=== PATIENT | female | born 1950 | race Caucasian/White ===

== ENCOUNTER 2018-10-07 16:51 | Inpatient (IN) | payer BC ==
[~2018-10-07] VITALS: Ht 152.4 cm; Wt 46.7 kg
--- NOTE | 2018-10-07 16:55 | NUR ---
BIB RA [facility] FROM HOME,TOOK UNKNOWN AMOUNT OF ATIVAN AND CETIRAZINE AT APPROXIMATELY 1600 (1 HR WIND TURBINE SERVICE TECHNICIAN), PLACED ON THE MONITOR AND NC AT 2L/MIN. DR BAÑUELOS AT FOR EVAL.
--- NOTE | 2018-10-07 17:17 | NUR ---
POISON CONTROL CALLED,SPOKE WITH KARSON. RECOMMENDATIONS: BASELINE EKG AND REPEAT IN 4 HRS TO MONITOR FOR EKG CHANGES,BASIC LABS AND DRUG SCREEN,TYLENOL,ASPIRIN AND ETOH, NO FLUMAZENIL SHOULD BE USED. DR BAÑUELOS INFORMED AND POISON CONTROL WILL CHECK BACK IN 4 HRS.
[2018-10-07 17:59] LABS: BASOPHILS # (AUTO) 0.1 /CMM (0.0-0.2); BASOPHILS % (AUTO) 0.8 % (0.0-2.0); EOSINOPHILS % (AUTO) 1.6 % (0.0-6.0); HEMATOCRIT 42 % (33-45); HEMOGLOBIN 13.7 g/dL (11.5-14.8); LYMPHOCYTES # (AUTO) 2.3 /CMM (0.8-4.8); LYMPHOCYTES % (AUTO) 31.4 % (20.0-44.0); MEAN CORPUSCULAR HGB CONC 33 g/dl (31.0-36.0); MEAN CORPUSCULAR VOLUME 92 fL (82-100); MONOCYTES # (AUTO) 0.6 /CMM (0.1-1.30); MONOCYTES % (AUTO) 7.5 % (2.0-12.0); NEUTROPHILS # (AUTO) 4.4 /CMM (1.8-8.9); NEUTROPHILS % (AUTO) 58.7 % (43.0-81.0); PLATELET COUNT (AUTO) 210 /CMM (150-450); WHITE BLOOD COUNT (AUTO) 7.4 K/uL (4.3-11.0)
[2018-10-07 18:13] LABS: CALCIUM, SERUM 9.2 mg/dL (8.5-10.1); CARBON DIOXIDE 27 mmol/L (21-32); CHLORIDE 108 mmol/L (98-107); CREATININE 0.6 mg/dL (0.6-1.3); GLUCOSE 89 mg/dL (74-106); SODIUM SERUM 140 mmol/L (136-145); UREA NITROGEN, BLOOD 14 mg/dL (7-18)
[2018-10-07 18:23] LABS: APPEARANCE,URINE Clear (CLEAR); BILIRUBIN,URINE Negative (NEGATIVE); BLOOD, URINE Negative Ery/uL (NEGATIVE); COLOR,URINE Yellow (YELLOW); KETONES,URINE Negative (NEGATIVE); LEUKOCYTE ESTERASE ,URINE Negative (NEGATIVE); NITRITE, URINE Negative (NEGATIVE); PH,URINE 6.5 (5.0-8.0); PROTEIN,URINE Negative (NEGATIVE); UGLUCOSE Negative (NEGATIVE); UROBILINOGEN,URINE 0.2 EU/dL (0.2)
[2018-10-07 18:27] LABS: ALANINE AMINOTRANSFERASE 18 U/L (12-78); ALBUMIN 2.9 g/dL (3.4-5.0); ALCOHOL, BLOOD < 3 mg/dL (0-0); ALKALINE PHOSPHATASE 66 U/L (46-116); ASPARTATE AMINOTRANSFERASE 18 U/L (15-37); BILIRUBIN,TOTAL 0.2 mg/dL (0.2-1.0); TOTAL PROTEIN, SERUM 6.3 g/dL (6.4-8.2)
[2018-10-07 18:29] LABS: ACETAMINOPHEN 0 ug/ml (10-30); SALICYLATE 2.6 mg/dL (2.8-20.0)
--- NOTE | 2018-10-07 19:15 | NUR ---
REPORT GIVEN TO OANH CRAWFORD FOR G[facility].
--- NOTE | 2018-10-07 19:32 | NUR ---
HUMBERTO (SISTER) CONTACT INFORMATION:
[2018-10-07] MEDS ORDERED: IV NS 0.9% 1,000 ML IV PRN (20:32)
[2018-10-07] MEDS ORDERED: ACETAMINOPHEN 650 MG/SUPP.RECT RC PRN (21:00)
[2018-10-07] MEDS ORDERED: ONDANSETRON HCL/PF 4 MG/2 ML VIAL IVP PRN (21:00)
--- NOTE | 2018-10-07 22:37 | NUR ---
Faxed clinicals to Tabby employment evaluator/case manager at [facility] (Fax #: [phone])
--- NOTE | 2018-10-07 22:51 | NUR ---
REPORT GIVEN TO MARCELINA HUGO.
--- NOTE | 2018-10-07 23:15 | NUR ---
TELE ELECTRICIAN MAINTENANCE INITIAL NOTES ADMIT PT FROM ER VIA [facility] ACCOMPANIED BY ER NURSE AND TECH. DX OF INTENTIONAL OVERDOSE WITH ATIVAN AND ZYRTEC. PT RECEIVED WITH EYES CLOSED BUT AROUSE TO TOUCH. ABLE TO ANSWERED SOME QUESTION BUT MOST OF THE TIME SHE IGNORED TO ANSWER. GOT INFORMATION FROM HER ER RECORDS. SKIN WARM AND DRY TO TOUCH.BREATHING EVEN AND NON-LABORED NOT IN ANY ACUTE DISTRESS NOTED. SITTER AT THE BEDSIDE FOR SAFETY. TELE SINUS RHYTHM HEART RATE 72 PER MONITOR. KEPT HER WARM AND COMFORTABLE AT ALL TIMES. PLACE CALL LIGHT AT REACH.
[2018-10-08 00:41] VITALS: BP 122/64
[2018-10-08 04:00] VITALS: BP 119/78
[2018-10-08] MEDS ORDERED: HALOPERIDOL LACTATE INJ 5 MG/ML VIAL IM PRN (07:00)
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
--- NOTE | 2018-10-08 07:10 | NUR ---
DRY END OPERATOR NOTES PATIENT RECEIVED RESTING INSIDE ROOM. AWAKE, ALERT AND ORIENTED TO SELF, ASKING WHERE SHE IS. PATIENT RE-ORIENTED TO UNIT. BREATHING EVEN AND UNLABORED. NO ACUTE DISTRESS. DENIES ANY PAIN OR DISCOMFORT. SITTER AT BEDSIDE. PATIENT NOTED TO BE COMBATIVE, REFUSING ASSISTANCE FROM NURSING STAFF. KEEPS ON TRYING TO GET OUT OF BED TELLING THAT SHE IS GOING HOME. WILL CONTINUE TO MONITOR. BED LOCKED AND IN LOW POSITION. BILATERAL UPPER SIDE RAILS UP AND LOCKED. CALL LIGHT WITHIN EASY REACH
--- NOTE | 2018-10-08 07:26 | NUR ---
AGRICULTURAL EXTENSION SPECIALIST NOTES PATIENT COMBATIVE. SCREAMING, "I AM GOD! I KILL MYSELF, I KILL MYSELF!". PATIENT ASKING WHERE SHE IS AND WHAT IS SHE DOING HERE. PATIENT RE-ORIENTED TO UNIT AND PLAN OF CARE. PATIENT CONTINUES TO BE COMBATIVE, SWING ARMS AND LEGS, ATTEMPTING TO KICK STAFF. SAFETY MEASURES IN PLACE. SITTER AT BEDSIDE. WILL CONTINUE TO MONITOR
[2018-10-08 07:49] LABS: BASOPHILS # (AUTO) 0.1 /CMM (0.0-0.2); BASOPHILS % (AUTO) 0.7 % (0.0-2.0); EOSINOPHILS % (AUTO) 1.1 % (0.0-6.0); HEMATOCRIT 37 % (33-45); HEMOGLOBIN 12.4 g/dL (11.5-14.8); LYMPHOCYTES # (AUTO) 2.2 /CMM (0.8-4.8); LYMPHOCYTES % (AUTO) 25.4 % (20.0-44.0); MEAN CORPUSCULAR HGB CONC 34 g/dl (31.0-36.0); MEAN CORPUSCULAR VOLUME 92 fL (82-100); MONOCYTES # (AUTO) 0.4 /CMM (0.1-1.30); MONOCYTES % (AUTO) 4.9 % (2.0-12.0); NEUTROPHILS # (AUTO) 5.8 /CMM (1.8-8.9); NEUTROPHILS % (AUTO) 67.9 % (43.0-81.0); PLATELET COUNT (AUTO) 208 /CMM (150-450); RED BLOOD CELL COUNT(AUTO) 4.03 MIL/uL (4.0-5.2); WHITE BLOOD COUNT (AUTO) 8.5 K/uL (4.3-11.0)
[2018-10-08 08:16] LABS: CALCIUM, SERUM 8.4 mg/dL (8.5-10.1); CREATININE 0.6 mg/dL (0.6-1.3); MAGNESIUM 2.1 mg/dL (1.8-2.4); PHOSPHORUS 3.2 mg/dL (2.5-4.9); POTASSIUM 3.5 mmol/L (3.5-5.1); THYROID STIMULATING HORMONE 1.25 uIU/mL (0.358-3.74)
[2018-10-08] MEDS ORDERED: PANTOPRAZOLE 40 MG VIAL IV SCH (09:00)
[2018-10-08] MEDS ORDERED: LORA1TAB PO (09:20)
[2018-10-08] MEDS ORDERED: SERT100T12 PO (09:20)
[2018-10-08] MEDS ORDERED: LOSA100T31 PO (09:20)
[2018-10-08] MEDS ORDERED: OLAN20TA3 PO (09:20)
--- NOTE | 2018-10-08 10:57 | NUR ---
MS RN NOTES PATIENT SEEN AND EXAMINED BY YOMAIRA BACON NP. WITH OK TO HAVE BILATERAL SOFT WRIST RESTRAINTS PATIENT KEEPS ON PULLING IV AND WITH MULTIPLE ATTEMPTS OF HITTING/KICKING STAFF. ALSO WITH ORDER FOR PSYCH CONSULT FOR EVAL. ORDERS NOTED AND CARRIED OUT. WILL CONTINUE TO MONITOR
--- NOTE | 2018-10-08 12:37 | NUR ---
MS RN NOTES PATIENT WITH ORDER FROM YOMAIRA BACON NP TO START SOFT DIET IF PATIENT PASSES NURSING SWALLOW EVAL. EVAL INITIATED AN PATIENT PASSED, YOMAIRA BACON NP PRESENT AT UNIT AND MADE AWARE. STARTED SOFT DIET. PATIENT AND SISTER, HUMBERTO, AT BEDSIDE MADE AWARE AND VERBALIZED UNDERSTANDING. WILL CONTINUE TO MONITOR
--- NOTE | 2018-10-08 14:18 | NUR ---
Social service consult requested by Dr. Juarez for intentional overdose. Pt. is a 68 year old female who was admitted to [facility] for overdose and encephalopathy. DREAD met with pt. and her sister Sunni bedside. Pt. is alert and oriented x 2. Pt. hair is disheveled. Pt. has a sitter bedside. Pt. states she overdosed because she was very angry. When SW inquired who pt. is angry with, pt. stated, " many people." Pt. was mumbling words which were difficult to comprehend. SW asked pt. if she is suicidal. Pt. stated, " no, I want to get close to God and talk to him." Pt. is suicidal and paranoid. Pt. states when she feels hopeless and stressed she usually tries to overdose. According to pt's sister Sunni, pt. lives alone. Sunni has been checking in on the pt. due to the landlord calling and stating the pt. was throwing items from the 3rd floor balcony onto the street. Pt. lives alone with her dog at [address] [place]. Pt's emergency contact is her sister Sunni and her [id number] Yunier . Per Sunni, the whole family suffers from Depression due to a brother who committed suicide a few years ago. Sunni states that pt. has Paranoid Schizophrenia and was taking her medications but stopped taking them 6 months ago. 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 Pt. to be seen by psychiatrist.
--- NOTE | 2018-10-08 18:45 | NUR ---
MS RN NOTES PATIENT WITH OK TO DISCHARGE FROM YOMAIRA BACON NP. ORDER NOTED AND CARRIED OUT. PATIENT MADE AWARE. DISCHARGE INSTRUCTIONS AND EDUCATION GIVEN AND PROVIDED BUT PATIENT REFUSED TO SIGN. CHARGE NURSE AWARE AND WITNESSED. ALL BELONGINGS COMPLETE. NO MISSING BELONGING PER INVENTORY SHEET. PATIENT TO BE TRANSFERRED TO [facility] UNIT, TO BE ADMITTED UNDER RAY TURNER GRAVELY DISABLE ADULT. NO CHANGES IN LOC NOTED. PATIENT ALERT AND ORIENTED, VERBALLY RESPONSIVE AND RESPONDS TO VERBAL AND TACTILE STIMULI. NO ACUTE DISTRESS. DENIES ANY PAIN OR DISCOMFORT. NO NEW SKIN BREAKDOWN NOTED. REPORT TO BE GIVEN TO GPS NURSE.
--- NOTE | 2018-10-08 19:49 | NUR ---
MS RN NOTES IV REMOVED WITH MINIMAL BLEEDING NOTED, PRESSURE DRESSING PLACED ON SITE. PATIENT TRANSFERRED TO GPS IN STABLE CONDITION. TRANSFERRED VIA BED. NO CHANGES IN LOC . BREATHING EVEN AND UNLABORED. NO ACUTE DISTRESS. DENIES ANY PAIN OR DISCOMFORT. NO NEW SKIN BREAKDOWN NOTED. ALL BELONGINGS BROUGHT WITH PATIENT DURING TRANSFER. REPORT GIVEN TO GPS FLOOR NURSE. MD AWARE OF DISCHARGE
== END 2018-10-08 18:44 | DRG 917 ==
LOC: ER 16:52 → TELE 21:55 → MED 10-08 10:32
PROVIDERS: ATTEND Nurse Practitioner Acute Care
DX: T42.4X2A Poisoning by benzodiazepines, intentional self-harm, initial encounter (principal); G92 Toxic encephalopathy; T45.0X2A Poisoning by antiallergic and antiemetic drugs, intentional self-harm, initial encounter; Y92.009 Unspecified place in unspecified non-institutional (private) residence as the place of occurrence of the external cause; F12.90 Cannabis use, unspecified, uncomplicated; I10 Essential (primary) hypertension; E88.09 Other disorders of plasma-protein metabolism, not elsewhere classified; F99 Mental disorder, not otherwise specified
CPT/HCPCS: 36415; 71045-TC; 80048-TC; 80061-TC; 80076-TC; 80305; 81000-TC; 83735-TC; 84100-TC; 84443-TC; 85025-TC; 87081-TC; G0378; G0480; J1630; J7030

== ENCOUNTER 2018-10-08 20:34 | Inpatient (IN) | payer BC, OTHER ==
[~2018-10-08] VITALS: Ht 149.9 cm; Wt 46.7 kg
--- NOTE | 2018-10-08 19:45 | NUR ---
GPS/TAILER IN ADMISSION NOTES: RECEIVED 68YR. OLD FEMALE ON A 5150 HOLD FOR GD AND DTS. PT. ON HOLD FOR SUICIDAL ATTEMPT BY TAKING A BOTTLE OF ZYRTEC AND SEVERAL ATIVAN. PT. A/O X2-3. PT. INFORMED OF UNIT POLICY, PROTOCOLS AND PROCEDURES. CALL ROMERO WITHIN REACH AND BED ALARM ON. PT. BELONGINGS LOGGED AND LOCKED ON PT. DESIGNATED CABINET. MEDICAL DR. AND PSYCH INFORMED OF PT. ADMISSION TO UNIT. FAMILY ALSO NOTIFIED. WILL CONTINUE TO MONITOR Q 15 MIN FOR SAFETY AND BEHAVIOR.
[~2018-10-08 20:34] MED LIST: LORA1TAB PO; LOSA100T31 PO; OLAN20TA3 PO; SERT100T12 PO
[2018-10-08] MEDS ORDERED: MAGNESIUM HYDROXIDE 30 ML UDC PO PRN (21:30)
[2018-10-08] MEDS ORDERED: ACETAMINOPHEN 325 MG TABLET PO PRN (21:30)
[2018-10-08] MEDS ORDERED: MAG HYDROX/AL HYDROX/SIMETH 30 ML UDC PO PRN (21:30)
[2018-10-09 07:08] LABS: BASOPHILS % (AUTO) 0.3 % (0.0-2.0); EOSINOPHILS % (AUTO) 0.7 % (0.0-6.0); HEMATOCRIT 40 % (33-45); HEMOGLOBIN 13.2 g/dL (11.5-14.8); LYMPHOCYTES # (AUTO) 2.6 /CMM (0.8-4.8); LYMPHOCYTES % (AUTO) 29.4 % (20.0-44.0); MEAN CORPUSCULAR HGB CONC 33 g/dl (31.0-36.0); MEAN CORPUSCULAR VOLUME 90 fL (82-100); MONOCYTES # (AUTO) 0.4 /CMM (0.1-1.30); MONOCYTES % (AUTO) 4.9 % (2.0-12.0); NEUTROPHILS # (AUTO) 5.7 /CMM (1.8-8.9); NEUTROPHILS % (AUTO) 64.7 % (43.0-81.0); PLATELET COUNT (AUTO) 222 /CMM (150-450); WHITE BLOOD COUNT (AUTO) 8.8 K/uL (4.3-11.0)
[2018-10-09 07:32] LABS: ALBUMIN 2.9 g/dL (3.4-5.0); BILIRUBIN,TOTAL 0.4 mg/dL (0.2-1.0); CREATININE 0.7 mg/dL (0.6-1.3); POTASSIUM 3.5 mmol/L (3.5-5.1); TOTAL PROTEIN, SERUM 6.3 g/dL (6.4-8.2)
[2018-10-09 07:35] LABS: CHOLESTEROL 184 mg/dL (<200); HDL CHOLESTEROL 85 mg/dL (40-60); LDL 90 mg/dL (0-99); TRIGLYCERIDES 120 mg/dL (30-150)
[2018-10-09 08:00] VITALS: BP 140/74
--- NOTE | 2018-10-09 10:15 | NUR ---
UR NOTE: SW faxed face sheet and Hold to to Serg at [phone] fax# [phone].
--- NOTE | 2018-10-09 11:31 | NUR ---
SW contacted pts sister Callie [phone] and brother in law Yunier [phone] for discharge planning and collateral information. Sister stated that pt is able to return home after she is stable. Sister is concerned with pts current behaviors and stated that there is a family history of suicidality, per sister pts mother and brother committed suicide. Brother in law requested to speak to Psychiatrist Dr. Payne to discuss treatment. SW also informed them that pts hospitalization may be short due to pts strict HMO insurance. Family understood.
--- NOTE | 2018-10-09 12:09 | NUR ---
INITIAL DISCHARGE PLAN: Per Callie [phone] pt will return home [place] [id number] [place] [address] [address] [place] [address]. SW will help form a safe and proper discharge in collaboration with pts sister, pt, HMO insurance, and .
--- NOTE | 2018-10-09 12:11 | NUR ---
UR NOTE: DREAD received a call from Violeta [phone], anesthesiologist and critical care at [facility] stating that she would be contacting [employer] to request authorization # then would contact DREAD with authorization status.
[2018-10-09 16:00] VITALS: BP 133/71
[2018-10-09] MEDS: LOSARTAN POTASSIUM 50 MG TABLET PO SCH (16:00)
--- NOTE | 2018-10-09 19:20 | NUR ---
GPS RN NOTES: PATIENT SIGN CONSENT FOR NEW PSYCH MEDICATION ORDERED. FAXED TP PHARMACY. PATIENT'S SISTER ASKED FOR THE MEDICATION TO BE GIVEN EARLIER THAN THE ORDERED TIME 2100 SO SHE CAN ASSIST WITH THE PATIENT TAKING THE SAID MEDICATION. SPOKE WITH PHARMACY STAFF AND AGREED TO MAKE THE MEDICATION AVAILABLE.PATIENT TOOK THE MEDICATION. WILL CONTINUE TO MONITOR.
[2018-10-09] MEDS: OLANZAPINE 5 MG/TAB.RAPDIS PO SCH (19:36)
[2018-10-09 20:00] VITALS: BP 144/88
[2018-10-09] MEDS ORDERED: OLANZAPINE 5 MG/TAB.RAPDIS PO SCH (21:00)
[2018-10-10] MEDS: OLANZAPINE 5 MG/TAB.RAPDIS PO SCH ×2 (07:30→19:30)
[2018-10-10 08:00] VITALS: BP 125/75
--- NOTE | 2018-10-10 08:45 | NUR ---
GPS/RN PT REFUSED ALL AM MEDS OFFERED X3. WILL REPEAT ATTEMPTS TO MEDICATE THE PT
[2018-10-10] MEDS: LOSARTAN POTASSIUM 50 MG TABLET PO SCH (09:00)
[2018-10-10] MEDS: SERTRALINE HCL 50 MG TABLET PO SCH (09:00)
--- NOTE | 2018-10-10 12:27 | NUR ---
GPS/RN PT REFUSED MEDS AGAIN DESPITE HER SISTER'S HELP. DR GARCIA IS AWARE OF PT RESISTANCE TO CARE.
[2018-10-10 16:00] VITALS: BP 128/72
[2018-10-11] MEDS: OLANZAPINE 5 MG/TAB.RAPDIS PO SCH ×2 (07:30→19:30)
[2018-10-11 08:16] VITALS: BP 123/80
[2018-10-11] MEDS: LOSARTAN POTASSIUM 50 MG TABLET PO SCH (08:35)
[2018-10-11] MEDS: SERTRALINE HCL 50 MG TABLET PO SCH (08:37)
[2018-10-11 16:24] VITALS: BP 125/57
--- NOTE | 2018-10-11 20:31 | NUR ---
Patient refused her scheduled medication stated "I'm a doctor to myself ,I don't take medication.".
[2018-10-11 21:00] VITALS: BP 134/68
[2018-10-12] MEDS: OLANZAPINE 5 MG/TAB.RAPDIS PO SCH ×2 (07:30→18:44)
[2018-10-12 08:00] VITALS: BP 120/73
[2018-10-12] MEDS: LOSARTAN POTASSIUM 50 MG TABLET PO SCH (08:45)
[2018-10-12] MEDS: SERTRALINE HCL 50 MG TABLET PO SCH (08:45)
--- NOTE | 2018-10-12 13:55 | NUR ---
UR NOTE: DREAD faxed clinical review to to Serg at [phone] fax# [phone] for review.
[2018-10-12 16:00] VITALS: BP 144/102
[2018-10-12] MEDS: DIVALPROEX SODIUM 250 MG TABLET.DR PO SCH (16:07)
--- NOTE | 2018-10-12 16:10 | NUR ---
UR NOTE: DREAD faxed clinical review to DEYVI Bonilla [phone] [facility]. FAX# [phone] and PATTI for review.
[2018-10-12 20:00] VITALS: BP 115/76
[2018-10-13] MEDS: OLANZAPINE 5 MG/TAB.RAPDIS PO SCH ×2 (07:30→20:18)
[2018-10-13 08:00] VITALS: BP 129/73
--- NOTE | 2018-10-13 08:39 | NUR ---
UR NOTE: DREAD received a call from Violeta [phone], critical care educator at [facility] stating that she has confirmed with [employer] that pts hospitalization has been authorized by [employer]. Violeta provided DREAD with authorization #[id number] and stated Tessa Headley [phone], critical care educator, has been assigned to pts case.
[2018-10-13] MEDS: LOSARTAN POTASSIUM 50 MG TABLET PO SCH (09:00)
[2018-10-13] MEDS: SERTRALINE HCL 50 MG TABLET PO SCH (09:00)
[2018-10-13] MEDS: DIVALPROEX SODIUM 250 MG TABLET.DR PO SCH ×2 (09:00→13:00)
--- NOTE | 2018-10-13 09:18 | NUR ---
GPS/RN-NOTES PATIENT REFUSED ALL AM MEDICATIONS STATED" I DON'T TAKE MEDICATIONS,I DON'T USE DRUGS" OFFERED X3.
--- NOTE | 2018-10-13 13:56 | NUR ---
UR NOTE: DREAD faxed clinical review to [facility] [phone] EXT 1 WITH [facility]. FAX# [phone] for review
--- NOTE | 2018-10-13 13:59 | NUR ---
SW contacted pts sister Callie [phone] and brother in law Yunier [phone] to inform them a [employer] petition had been filed yesterday 10/12/18. Brother in law stated that him and pts sister were at [facility] on this present day attending the hearing scheduled for 1430.
[2018-10-13] MEDS ORDERED: OLANZAPINE 10 MG VIAL IM PRN (15:30)
[2018-10-13 16:00] VITALS: BP 126/54
[2018-10-13 20:00] VITALS: BP 150/82
[2018-10-14 08:00] VITALS: BP 127/77
--- NOTE | 2018-10-14 08:08 | NUR ---
UR NOTE: DREAD received a voicemail from [facility] [phone] acute care assistant with [employer] stating pt needed to be transferred out for psych as this authorization is a [facility] carve out. DREAD informed iso coordinator as DREAD has previously received a call from Violeta therapy manager at [facility] confirming she received authorization from [employer].
--- NOTE | 2018-10-14 08:40 | NUR ---
UR NOTE: DREAD faxed clinical review to [facility] [phone] skin care consultant with [facility]. FAX# [phone] and also faxed clinical review to [facility] fax# [phone] for review.
[2018-10-14] MEDS: OLANZAPINE 5 MG/TAB.RAPDIS PO SCH ×2 (09:30→20:14)
[2018-10-14] MEDS: LOSARTAN POTASSIUM 50 MG TABLET PO SCH (09:53)
--- NOTE | 2018-10-14 14:38 | NUR ---
UR NOTE: DREAD received a voicemail from Malathi, shoe caser at [facility] [phone] [phone] requesting clinical review for pt and legal status. DREAD faxed clinical review to [phone].
--- NOTE | 2018-10-14 14:41 | NUR ---
UR NOTE: DREAD contacted Pilar, director day care center at [facility] [phone] [phone] to discuss discharge plan for pt.
--- NOTE | 2018-10-14 15:01 | NUR ---
@12:30 patient refused to eat her food had the SENIOR CHEMIST remove the food out of the room and shut the door. I went in after I saw this and asked the patient why she did not want to eat and she replied "Because i am on Strike!!! No Food!!" Will continue to monitor.
--- NOTE | 2018-10-14 15:55 | NUR ---
UR NOTE: DREAD received a call from Malathi, window caser at [facility] [phone] [phone] requesting legal status on pt and recertification paperwork. DREAD faxed recertification.
[2018-10-14 16:00] VITALS: BP 121/75
[2018-10-14 20:37] VITALS: BP 131/73
[2018-10-14] MEDS: TEMAZEPAM 7.5 MG CAPSULE PO PRN (21:16)
[2018-10-15 08:00] VITALS: BP 130/74
[2018-10-15] MEDS: OLANZAPINE 5 MG/TAB.RAPDIS PO SCH ×2 (08:14→20:21)
[2018-10-15] MEDS: LOSARTAN POTASSIUM 50 MG TABLET PO SCH (08:16)
--- NOTE | 2018-10-15 09:26 | NUR ---
UR NOTE: DREAD faxed clinical review to Malathi case repairer at [facility] [phone] [phone] for review.
--- NOTE | 2018-10-15 09:34 | NUR ---
UR NOTE: DREAD contacted Malathi, case aide at [facility] [phone] [phone] to inform her pt has been refusing to eat and also refusing PO meds. DREAD informed Malathi pt will need to stay over the weekend. Malathi will review clinicals.
--- NOTE | 2018-10-15 12:23 | NUR ---
DREAD contacted pts brother in law Yunier [phone] to request a discharge plan for pt as SW explained that pts HMO insurance is strict and will discharge as soon as pt no longer meets criteria for psychiatric hospitalization. Brother in law was unhappy and stated that he wants pt hospitalized for 30-40 days until her system gets use to the medication. SW explained that keeping pt here for 30-40days is not possible as pts hospitalization is being covered by [employer] and if they feel pt no longer meets criteria they will no longer cover and pt will have to discharge. in law requested to speak with pts psychiatrist Dr. Payne regarding length of stay. SW will inform Dr. Núñez. SW also informed brother in law that he should expect pt to discharge early next week as [employer] insurance may only approve hospitalization over the weekend due to pt being compliant with psychiatric medication. Pt will be discharged home per brother in law.
[2018-10-15 16:00] VITALS: BP 100/59
[2018-10-15 20:00] VITALS: BP 97/72
[2018-10-16 08:00] VITALS: BP 106/67
--- NOTE | 2018-10-16 08:28 | NUR ---
UR NOTE: DREAD faxed clinical review to Malathi case assistant at [facility] [phone] [phone] for review.
[2018-10-16] MEDS: LOSARTAN POTASSIUM 50 MG TABLET PO SCH (08:53)
[2018-10-16] MEDS: OLANZAPINE 5 MG/TAB.RAPDIS PO SCH ×2 (08:53→20:19)
[2018-10-16 16:04] VITALS: BP 104/71
--- NOTE | 2018-10-16 19:00 | NUR ---
GPS RN NOTE: SPOKE TO MICHAEL (SISTER) OF THE PATIENT, PER SISTER, SHE REQUESTED THE PSYCHIATRIST DR. QUIÑONES TO TALK TO THE PSYCHOLOGIST OF THE PATIENT. AND PER REPORT OF THE PREVIOUS NURSE, DR. QUIÑONES REFUSED TO CALL THE PSYCHOLOGIST. WITH THE ASSISTANCE OF THE PREVIOUS NURSE, RELAYED THE INFORMATION TO THE SISTER, SISTER GETS UPSET AND WANTS TO CHANGE HER PSYCHIATRIST AND WANTS TO TALK TO THE HEAD OF THE DEPARTMENT. SISTER SPOKED TO THE CHARGE NURSE AND AGREED TO TALK TO THE PSYCHIATRIST AND THE SALESPERSON MEN'S AND BOYS' CLOTHING. WILL ENDORSE TO THE NEXT SHIFT.
[2018-10-16 20:31] VITALS: BP 149/87
[2018-10-17] MEDS: LORAZEPAM 0.5 MG TABLET PO PRN ×2 (00:16→21:56)
[2018-10-17 08:00] VITALS: BP 121/74
[2018-10-17] MEDS: OLANZAPINE 5 MG/TAB.RAPDIS PO SCH ×2 (08:54→18:48)
[2018-10-17] MEDS: LOSARTAN POTASSIUM 50 MG TABLET PO SCH (08:55)
[2018-10-17 15:52] VITALS: BP 113/59
[2018-10-17 20:00] VITALS: BP 121/74
[2018-10-18 08:00] VITALS: BP 127/73
[2018-10-18] MEDS: OLANZAPINE 5 MG/TAB.RAPDIS PO SCH ×2 (08:15→18:51)
[2018-10-18] MEDS: LOSARTAN POTASSIUM 50 MG TABLET PO SCH (08:16)
[2018-10-18 16:00] VITALS: BP 128/70
[2018-10-18 20:09] VITALS: BP 127/75
[2018-10-18] MEDS: LORAZEPAM 0.5 MG TABLET PO PRN (20:47)
[2018-10-19] MEDS: OLANZAPINE 5 MG/TAB.RAPDIS PO SCH (07:52)
[2018-10-19 08:00] VITALS: BP 141/77
[2018-10-19] MEDS: LOSARTAN POTASSIUM 50 MG TABLET PO SCH (08:16)
--- NOTE | 2018-10-19 09:42 | NUR ---
UR NOTE: DREAD faxed clinical review to Malathi patient case manager at [facility] [phone] [phone] for review.
--- NOTE | 2018-10-19 09:50 | NUR ---
DREAD received a phone call from pts brother in law Yunier [phone] requesting to switch psychiatrist due to Dr. Payne "being disengaged" from family and not returning calls. Family requested Dr. Aguilar or Dr. Vasquez, DREAD informed him that due to pts [facility] Dr. Aguilar/Dr. Vasquez are not authorized MD's and thus unable to switch. Brother in law understood, DREAD informed him that she would contact Dr. Payne for call back.
--- NOTE | 2018-10-19 10:00 | NUR ---
SW contacted Dr. Payne requesting call to family.
--- NOTE | 2018-10-19 10:12 | NUR ---
DREAD contacted pts brother in law Yunier [phone] after receiving a call from Psychiatrist Dr. Payne, informing him that pt may be discharging on this present day and to be ready for cone picker. DREAD also informed him that Psychiatrist will be giving him a call after he assesses pt on this present day.
--- NOTE | 2018-10-19 15:30 | NUR ---
RN-CO: DR QUIÑONES MADE AWARE TO CALL PATIENT'S BROTHER. PATIENT IS PLANNED TO BE DISCHARGE HOME TOMORROW.
[2018-10-19 16:00] VITALS: BP 118/62
[2018-10-19 19:55] VITALS: BP 141/88
[2018-10-19] MEDS: TEMAZEPAM 7.5 MG CAPSULE PO PRN (21:38)
[2018-10-19] MEDS ORDERED: OLANZAPINE 5 MG/TAB.RAPDIS PO SCH (22:00)
[2018-10-20 08:00] VITALS: BP 116/85
[2018-10-20 09:13] VITALS: BP 116/85
[2018-10-20] MEDS: LOSARTAN POTASSIUM 50 MG TABLET PO SCH (09:13)
--- NOTE | 2018-10-20 10:16 | NUR ---
UR NOTE: DREAD contacted Pilar, zoo caretaker at [facility] [phone] [phone] and requested a follow up appointment with psychiatrist. Pilar stated that she has been unable to schedule an after care appointment but provided DREAD with a list of psychiatrist within pts network to provide as referrals.
--- NOTE | 2018-10-20 12:00 | NUR ---
GREEN CHAIN MARKER NOTE ;PATIENT ALERT ,VERBALLY RESPONSIVE ,DENIES SI/HI/AVH .MED COMPLIANT ,VS STABLE .PATIENT SEEN BY PSYCHIATRIST AND SATURATOR WITH DISCHARGE ORDER,ALL BELONGINGS RETURNED TO PATIENT .PATIENT DISCHARGED WITH SISTER .
--- NOTE | 2018-10-20 12:20 | NUR ---
DISCHARGE NOTE: Pt was discharged between at 12:00pm via private vehicle home to [address], [facility] [address]. Pts sister Antonette [phone] picked pt up and transported home. For smoking cessation, patient was referred to the [employer] and [employer] [id number]. Pt will also participate in a telephone meeting with [employer] [phone] on Sunday October 21, 2018 at 8:00am. Pt was provided with referral to [facility]'s 1.Dr. Yamileth Sarmiento Address: [address] [address] 2.Dr. Yon Payne Address: [address] [place] [address] 3.Dr. Fritz Escoto Address: [address] [facility] [address] [address] 4.Dr. Rae Koo Address: [address] [place] [address] 5.Dr. Andre Pedro Address: [address] [place] [address] Phone: and was instructed to call and schedule an appointment. also provided pt with auto care center manager with [facility] [phone] contact information. Pt will also schedule a follow up appointment with Lead Ruby On Rails Developer Dr. Buchanan. The multidisciplinary exitcare form was done, printed, signed, and given to the patient. Addendum: 10/20/18 at 1441 by EMILY CANADA Pts mood was euphoric with congruent affect. Pt denied visual/auditory hallucinations and denied suicidal/homicidal ideations
--- NOTE | 2018-10-22 12:52 | NUR ---
UR NOTE: DREAD faxed discharge summary to Malathi clinical case manager at [facility] [phone] [phone] .
== END 2018-10-20 12:00 | disposition home or self-care (01) | DRG 885 ==
LOC: GPS 20:34
PROVIDERS: ADMIT Psychiatry & Neurology Psychiatry; ATTEND Psychiatry & Neurology Psychiatry
DX: F31.2 Bipolar disorder, current episode manic severe with psychotic features (principal); N17.0 Acute kidney failure with tubular necrosis; G92 Toxic encephalopathy; E44.0 Moderate protein-calorie malnutrition; F29 Unspecified psychosis not due to a substance or known physiological condition; T50.902D Poisoning by unspecified drugs, medicaments and biological substances, intentional self-harm, subsequent encounter; F12.10 Cannabis abuse, uncomplicated; Z79.899 Other long term (current) drug therapy; Z91.14 Patient's other noncompliance with medication regimen; R73.9 Hyperglycemia, unspecified; I10 Essential (primary) hypertension
CPT/HCPCS: 36415; 80053-TC; 80061-TC; 85025-TC; 87081-TC; J3490

== ENCOUNTER 2020-08-11 23:36 | Emergency (ER) | payer OTHER ==
[~2020-08-11] VITALS: Ht 152.4 cm; Wt 43.5 kg
[~2020-08-11 23:36] MED LIST changes: -LORA1TAB PO; -OLAN20TA3 PO; -SERT100T12 PO
--- NOTE | 2020-08-12 00:05 | NUR ---
PT CAME TO THE ER C/O VAGINAL BLEEDING SINCE 8PM TODAY. +WATERY +BRIGHT RED. PT AAOX4, VSS, RESPIRAIONS EVEN AND UNLABORED W/ NAD NOTED. PT CONNECTED TO THE MONITOR AND POX
--- NOTE | 2020-08-12 00:10 | NUR ---
URINE COLLECTED AND SENT TO LAB
[2020-08-12 00:32] LABS: BILIRUBIN,URINE NEGATIVE (NEGATIVE); BLOOD, URINE LARGE Ery/uL (NEGATIVE); COLOR,URINE RED (YELLOW); LEUKOCYTE ESTERASE ,URINE MODERATE (NEGATIVE); NITRITE, URINE POSITIVE (NEGATIVE); PROTEIN,URINE >=300 mg/dl (NEGATIVE); UGLUCOSE 100 MG/DL mg/dL (NEGATIVE)
[2020-08-12 00:39] LABS: RBC,URINE TOO NUMEROUS TO COUN /HPF (0-2)
[2020-08-12 00:40] LABS: BACTERIA,URINE Few /HPF (None Seen); SQUAMOUS EPITHELIAL CELL,UR Few /HPF (None Seen)
[2020-08-12 00:54] LABS: BASOPHILS % (AUTO) 0.4 % (0.0-2.0); EOSINOPHILS % (AUTO) 0.4 % (0.0-6.0); HEMATOCRIT 41 % (33-45); HEMOGLOBIN 13.4 g/dL (11.5-14.8); LYMPHOCYTES # (AUTO) 2.7 /CMM (0.8-4.8); MEAN CORPUSCULAR HGB CONC 33 g/dl (31.0-36.0); MEAN CORPUSCULAR VOLUME 90 fL (82-100); MONOCYTES # (AUTO) 0.7 /CMM (0.1-1.30); MONOCYTES % (AUTO) 6.2 % (2.0-12.0); NEUTROPHILS # (AUTO) 7.7 /CMM (1.8-8.9); PLATELET COUNT (AUTO) 243 /CMM (150-450); RED BLOOD CELL COUNT(AUTO) 4.53 MIL/uL (4.0-5.2); WHITE BLOOD COUNT (AUTO) 11.1 K/uL (4.3-11.0)
[2020-08-12] MEDS ORDERED: CEFTRIAXONE 1GM BAG (ER ONLY) 50 ML IV ONE (01:26)
[2020-08-12] MEDS: CEFTRIAXONE 1 G in IV D5W 50 ML IV ONE (01:34)
[2020-08-12 03:14] VITALS: BP 136/91
--- NOTE | 2020-08-12 03:14 | NUR ---
Patient discharged to home in stable condition. Written and verbal after care instructions given. Patient verbalizes understanding of instruction.IV removed. Catheter intact and site benign. Pressure and 4x4 applied to site. No bleeding noted.
[2020-08-12] MEDS ORDERED: RISP1TAB97 PO (15:05)
[2020-08-12] MEDS ORDERED: SERT50TA12 PO (15:05)
[2020-08-12] MEDS ORDERED: LORA-259 PO (15:05)
[2020-08-12] MEDS ORDERED: UMEC1BLS INH (15:05)
[2020-08-12] MEDS ORDERED: SIMV10TA98 PO (15:05)
== END 2020-08-12 03:15 | disposition home or self-care (01) ==
LOC: ER 23:38
DX: N39.0 Urinary tract infection, site not specified (principal); N93.8 Other specified abnormal uterine and vaginal bleeding; R93.89 Abnormal findings on diagnostic imaging of other specified body structures; R10.30 Lower abdominal pain, unspecified; I10 Essential (primary) hypertension; Z79.899 Other long term (current) drug therapy
CPT/HCPCS: 36415; 76856; 81001; 85025; 85730; 86850; 96365; 99284; J0696; 81000-TC; 87086-TC

== ENCOUNTER 2020-08-12 14:46 | Emergency (ER) | payer OTHER ==
--- NOTE | 2020-08-12 14:50 | NUR ---
PT IS REQUESTING A MEDICAL DELIVERY DRIVER. WHEN TOLD THAT SHE NEEDS TO BE SEEN BY ED PROVIDER FIRST. PT JUST DECIDED TO LEAVE AND WILL SEE PMD FOR REFFERAL TO COMPUTER CUSTOMER SUPPORT SPECIALIST
[2020-08-12] MEDS ORDERED: SIMV10TA98 PO (15:05)
[2020-08-12] MEDS ORDERED: LORA-259 PO (15:05)
[2020-08-12] MEDS ORDERED: UMEC1BLS INH (15:05)
[2020-08-12] MEDS ORDERED: SERT50TA12 PO (15:05)
[2020-08-12] MEDS ORDERED: RISP1TAB97 PO (15:05)
== END 2020-08-16 | disposition left against medical advice (07) ==
LOC: ER 14:47
DX: Z53.21 Procedure and treatment not carried out due to patient leaving prior to being seen by health care provider (principal)

== ENCOUNTER 2021-02-03 10:24 | Emergency (ER) | payer OTHER ==
[~2021-02-03] VITALS: Ht 160 cm; Wt 42.6 kg
[~2021-02-03 10:24] MED LIST changes: +LORA-259 PO; +RISP1TAB97 PO; +SERT-438 PO; +SIMV10TA98 PO; +UMEC1BLS INH
[2021-02-03 11:23] LABS: BILIRUBIN,URINE Negative (NEGATIVE); COLOR,URINE YELLOW (YELLOW); LEUKOCYTE ESTERASE ,URINE Small (NEGATIVE); NITRITE, URINE Negative (NEGATIVE); PH,URINE 7.5 (5.0-8.0); PROTEIN,URINE 100 mg/dl (NEGATIVE); UGLUCOSE Negative (NEGATIVE); UROBILINOGEN,URINE 0.2 EU/dL (0.2)
[2021-02-03 11:26] LABS: BACTERIA,URINE 1+ /HPF (None Seen); RBC,URINE 21-50 /HPF (0-2); SQUAMOUS EPITHELIAL CELL,UR Few /HPF (None Seen)
--- NOTE | 2021-02-03 11:30 | NUR ---
THE PATIENT BIBS FOR C/O PELVIC AREA PAIN W/ NOTED BLOOD IN URINE X 2 DAYS. PATIENT RATES PAIN 6/10. DENIES NAUSEA/VOMITING. ABDOMEN SOFT AND NON-DISTENDED. WARM BLANKET PROVIDED FOR COMFORT. WILL CONTINUE TO MONITOR THE PATIENT.
[2021-02-03] MEDS ORDERED: CEFU500T66 PO (13:08)
[2021-02-03 13:12] VITALS: BP 122/73
--- NOTE | 2021-02-03 13:12 | NUR ---
Patient discharged to home in stable condition. Written and verbal after care instructions given. Patient verbalizes understanding of instruction.
== END 2021-02-03 13:13 | disposition home or self-care (01) ==
LOC: ER 10:28
DX: N39.0 Urinary tract infection, site not specified (principal); R31.9 Hematuria, unspecified; I10 Essential (primary) hypertension; F41.9 Anxiety disorder, unspecified; F17.200 Nicotine dependence, unspecified, uncomplicated; Z79.899 Other long term (current) drug therapy
CPT/HCPCS: 81001; 87086-TC

== ENCOUNTER 2021-06-01 09:41 | Emergency (ER) | payer OTHER ==
[~2021-06-01] VITALS: Ht 167.6 cm; Wt 38.1 kg
[2021-06-01 09:41] VITALS: BP 141/54
[~2021-06-01 09:41] MED LIST changes: +CEFU500T66 PO; -RISP1TAB97 PO; -SERT-438 PO; +SERT50TA12 PO
--- NOTE | 2021-06-01 10:11 | NUR ---
SEEN BY DR FOSTER WITH ORDERS, LAB AT THE BEDSIDE FOR BLOOD DRAW. URINE SENT
--- NOTE | 2021-06-01 10:24 | NUR ---
WAITING FOR LAB RESULTS
[2021-06-01 10:32] LABS: BASOPHILS # (AUTO) 0.1 K/uL (0.0-0.2); BASOPHILS % (AUTO) 0.8 % (0.0-2.0); EOSINOPHILS % (AUTO) 0.3 % (0.0-6.0); HEMATOCRIT 40 % (33-45); HEMOGLOBIN 13.5 g/dL (11.5-14.8); LYMPHOCYTES # (AUTO) 1.6 K/uL (0.8-4.8); LYMPHOCYTES % (AUTO) 17.8 % (20.0-44.0); MEAN CORPUSCULAR HGB CONC 34 g/dl (31.0-36.0); MEAN CORPUSCULAR VOLUME 93 fL (82-100); MONOCYTES # (AUTO) 0.4 K/uL (0.1-1.30); MONOCYTES % (AUTO) 4.1 % (2.0-12.0); NEUTROPHILS # (AUTO) 6.9 K/uL (1.8-8.9); PLATELET COUNT (AUTO) 224 K/uL (150-450)
[2021-06-01 10:38] LABS: BILIRUBIN,URINE NEGATIVE (NEGATIVE); COLOR,URINE YELLOW (YELLOW); LEUKOCYTE ESTERASE ,URINE NEGATIVE (NEGATIVE); NITRITE, URINE NEGATIVE (NEGATIVE); PROTEIN,URINE NEGATIVE (NEGATIVE); UGLUCOSE NEGATIVE (NEGATIVE); UROBILINOGEN,URINE 0.2 EU/dL (0.2)
[2021-06-01 10:45] LABS: CALCIUM, SERUM 9.1 mg/dL (8.5-10.1); CREATININE 0.7 mg/dL (0.6-1.3); POTASSIUM 3.3 mmol/L (3.5-5.1)
[2021-06-01 10:50] LABS: BACTERIA,URINE Rare /HPF (None Seen); SQUAMOUS EPITHELIAL CELL,UR Rare /HPF (None Seen); WBC,URINE 0-2 /HPF (0-3)
[2021-06-01 10:53] LABS: ALBUMIN 3.5 g/dL (3.4-5.0); BILIRUBIN,DIRECT 0.1 mg/dL (0.0-0.2); BILIRUBIN,TOTAL 0.3 mg/dL (0.2-1.0); TOTAL PROTEIN, SERUM 6.9 g/dL (6.4-8.2)
[2021-06-01] MEDS ORDERED: PHEN-704 PO (11:45)
--- NOTE | 2021-06-01 11:52 | NUR ---
Patient discharged to home in stable condition. Written and verbal after care instructions given. Patient verbalizes understanding of instruction.
== END 2021-06-01 11:54 | disposition home or self-care (01) ==
LOC: ER 09:43
DX: R31.9 Hematuria, unspecified (principal); I10 Essential (primary) hypertension; F41.9 Anxiety disorder, unspecified; F17.200 Nicotine dependence, unspecified, uncomplicated; Z79.899 Other long term (current) drug therapy
CPT/HCPCS: 36415; 80048-TC; 80076-TC; 81001; 83690-TC; 85025-TC

== ENCOUNTER 2023-07-14 10:42 | Emergency (ER) | payer OTHER ==
[~2023-07-14] VITALS: Ht 152.4 cm; Wt 47.6 kg
[~2023-07-14 10:42] MED LIST changes: -CEFU500T66 PO; +PHEN-704 PO
[2023-07-14] MEDS ORDERED: dexaMETHasone SOD PHOSPHATE 4 MG/ML VIAL IM ONE (11:30)
[2023-07-14] MEDS ORDERED: dexaMETHasone SOD PHOSPHATE 10 MG/ML VIAL ONE (11:38)
[2023-07-14 11:45] VITALS: BP 147/95; TEMP 98.4; O2SAT 100
== END 2023-07-14 11:45 | disposition home or self-care (01) ==
LOC: ER 10:43
DX: L30.9 Dermatitis, unspecified (principal); I10 Essential (primary) hypertension; F17.200 Nicotine dependence, unspecified, uncomplicated; Z79.899 Other long term (current) drug therapy
CPT/HCPCS: J1100

== ENCOUNTER 2023-08-30 08:56 | Emergency (ER) | payer BC, OTHER ==
[~2023-08-30] VITALS: Ht 157.5 cm; Wt 47.6 kg
[2023-08-30 09:12] VITALS: TEMP 98.4
[2023-08-30 09:51] LABS: BASOPHILS % (AUTO) 0.4 % (0.0-2.0); EOSINOPHILS % (AUTO) 0.5 % (0.0-6.0); HEMATOCRIT 43 % (33-45); HEMOGLOBIN 14.4 g/dL (11.5-14.8); LYMPHOCYTES # (AUTO) 1.6 K/uL (0.8-4.8); LYMPHOCYTES % (AUTO) 21.1 % (20.0-44.0); MEAN CORPUSCULAR HEMOGLOBIN 30 PG (26.0-33.0); MEAN CORPUSCULAR HGB CONC 34 g/dl (31.0-36.0); MEAN CORPUSCULAR VOLUME 90 fL (82-100); MONOCYTES # (AUTO) 0.4 K/uL (0.1-1.30); MONOCYTES % (AUTO) 5.7 % (2.0-12.0); NEUTROPHILS # (AUTO) 5.4 K/uL (1.8-8.9); NEUTROPHILS % (AUTO) 72.3 % (43.0-81.0); PLATELET COUNT (AUTO) 278 K/uL (150-450); RED CELL DISTRIBUTION WIDTH 13.9 % (11.5-15.0); WHITE BLOOD COUNT (AUTO) 7.5 K/uL (4.3-11.0)
[2023-08-30 10:17] LABS: CALCIUM, SERUM 9.8 mg/dL (8.5-10.1); CARBON DIOXIDE 28 mmol/L (21-32); CHLORIDE 102 mmol/L (98-107); CREATININE 0.8 mg/dL (0.6-1.3); GLUCOSE 107 mg/dL (74-106); POTASSIUM 3.7 mmol/L (3.5-5.1); SODIUM SERUM 136 mmol/L (136-145); UREA NITROGEN, BLOOD 13 mg/dL (7-18)
[2023-08-30 10:31] LABS: NT-PRO BNP 123 pg/mL (0-125)
[2023-08-30 12:01] VITALS: BP 129/69; O2SAT 97
== END 2023-08-30 12:02 | disposition home or self-care (01) ==
LOC: ER 08:56
DX: R07.9 Chest pain, unspecified (principal); I10 Essential (primary) hypertension; F41.9 Anxiety disorder, unspecified; F17.200 Nicotine dependence, unspecified, uncomplicated; Z85.3 Personal history of malignant neoplasm of breast
CPT/HCPCS: 36415; 71045-TC; 72170-TC; 80048-TC; 82550-TC; 83880; 84484-TC; 85025-TC

== ENCOUNTER 2025-08-03 16:22 | Inpatient (IN) | payer OTHER ==
[~2025-08-03] VITALS: Ht 157.5 cm; Wt 46.4 kg
[2025-08-03 17:31] LABS: PLATELET COUNT (AUTO) 204 K/uL (150-450); RED BLOOD CELL COUNT(AUTO) 4.56 MIL/uL (4.0-5.2); RED CELL DISTRIBUTION WIDTH 13.8 % (11.5-15.0); WHITE BLOOD COUNT (AUTO) 9.1 K/uL (4.3-11.0)
[2025-08-03 17:36] LABS: CALCIUM, SERUM 9.2 mg/dL (8.5-10.1); CREATININE 0.8 mg/dL (0.6-1.3); SODIUM SERUM 144 mmol/L (136-145); UREA NITROGEN, BLOOD 17 mg/dL (7-18)
[2025-08-03 17:47] LABS: ASPARTATE AMINOTRANSFERASE 32 U/L (15-37); TOTAL PROTEIN, SERUM 6.8 g/dL (6.4-8.2)
[2025-08-03] MEDS ORDERED: POTASSIUM CHLORIDE 20 MEQ TAB.PRT.SR PO ONE (19:06)
[2025-08-03] MEDS: POTASSIUM CHLORIDE 20 MEQ TAB.PRT.SR PO ONE (19:10)
[2025-08-03 19:14] LABS: APPEARANCE,URINE CLEAR (CLEAR); BLOOD, URINE NEGATIVE Ery/uL (NEGATIVE); LEUKOCYTE ESTERASE ,URINE TRACE (NEGATIVE); NITRITE, URINE POSITIVE (NEGATIVE); UGLUCOSE NEGATIVE (NEGATIVE)
[2025-08-03 19:23] VITALS: O2SAT 99
[2025-08-03 19:36] LABS: ADD URINE CULTURE YES; SQUAMOUS EPITHELIAL CELL,UR Moderate /HPF (None Seen)
[2025-08-03 19:40] LABS: AMPHETAMINE, URINE NEGATIVE (NEGATIVE); BARBITURATE, URINE NEGATIVE (NEGATIVE); BENZODIAZEPINE, URINE NEGATIVE (NEGATIVE); COCCAINE, URINE NEGATIVE (NEGATIVE); OPIATE, URINE NEGATIVE (NEGATIVE)
[2025-08-03 19:42] LABS: CANNABINOID, URINE POSITIVE (NEGATIVE)
[2025-08-03] MEDS ORDERED: CEPHALEXIN MONOHYDRATE 500 MG CAPSULE PO ONE (20:09)
[2025-08-03] MEDS ORDERED: HALOPERIDOL LACTATE INJ 5 MG/ML VIAL ONE (20:12)
[2025-08-03] MEDS: HALOPERIDOL LACTATE INJ 5 MG/ML VIAL IM ONE (20:23)
[2025-08-03] MEDS: CEPHALEXIN MONOHYDRATE 500 MG CAPSULE PO ONE (20:23)
[2025-08-03] MEDS: CEPHALEXIN MONOHYDRATE 500 MG CAPSULE PO SCH (21:00)
[2025-08-03] MEDS ORDERED: RISP1TAB97 PO (21:05)
[2025-08-03] MEDS ORDERED: SIMV-46 PO (21:05)
[2025-08-03] MEDS ORDERED: TEMAZEPAM 7.5 MG CAPSULE PO PRN (23:00)
[2025-08-03] MEDS ORDERED: MAGNESIUM HYDROXIDE 30 ML UDC PO PRN (23:00)
[2025-08-03] MEDS: BLOOD SUGAR DIAGNOSTIC 1 EACH STRIP IN ONE (23:26)
[2025-08-03 23:40] VITALS: BP 112/83; TEMP 98.2
[2025-08-04 08:24] LABS: ASPARTATE AMINOTRANSFERASE 47.0 U/L (15-37); CREATININE 0.6 mg/dL (0.6-1.3); TOTAL PROTEIN, SERUM 6.6 g/dL (6.4-8.2); UREA NITROGEN, BLOOD 12.0 mg/dL (7-18)
[2025-08-04 08:28] LABS: LDL 89 mg/dL (0-99)
[2025-08-04] MEDS: LOSARTAN POTASSIUM 50 MG TABLET PO SCH (09:00)
[2025-08-04 09:21] LABS: CALCIUM, SERUM 9.2 mg/dL (8.5-10.1); SODIUM SERUM 140.0 mmol/L (136-145)
[2025-08-04] MEDS: POTASSIUM CHLORIDE 20 MEQ TAB.PRT.SR PO ONE (10:12)
[2025-08-04] MEDS: QUETIAPINE FUMARATE 25 MG TABLET PO SCH (13:30)
[2025-08-04 16:00] VITALS: BP 111/86; TEMP 97.7; O2SAT 98
[2025-08-04] MEDS: SIMVASTATIN 20 MG TABLET PO SCH (18:00)
[2025-08-04 20:18] VITALS: BP 141/86; TEMP 97.7; O2SAT 99
[2025-08-04 23:02] LABS: CREATININE 0.7 mg/dL (0.6-1.3)
[2025-08-05 08:00] VITALS: BP 147/74; TEMP 98.1; O2SAT 97
[2025-08-05 16:00] VITALS: BP 140/76; TEMP 98.1; O2SAT 98
[2025-08-05 20:17] VITALS: BP 123/65; TEMP 98; O2SAT 96
[2025-08-06 08:00] VITALS: BP 129/84; TEMP 98.7; O2SAT 97
[2025-08-06] MEDS: LORAZEPAM 1 MG TABLET PO PRN (13:10)
[2025-08-06 16:00] VITALS: BP 138/73; TEMP 98.6; O2SAT 98
[2025-08-06 20:32] VITALS: BP 138/82; TEMP 98.4; O2SAT 97
[2025-08-06] MEDS: QUETIAPINE FUMARATE 25 MG TABLET PO SCH (20:53)
[2025-08-07 08:00] VITALS: BP 120/79; TEMP 97.2; O2SAT 96
[2025-08-07 16:00] VITALS: BP 146/83; TEMP 98.2; O2SAT 96
[2025-08-07 19:56] VITALS: BP 153/85; TEMP 98.2; O2SAT 98
[2025-08-08 08:00] VITALS: BP 143/86; TEMP 98; O2SAT 98
[2025-08-08 16:00] VITALS: BP 161/86; TEMP 98.1; O2SAT 98
[2025-08-08 17:00] VITALS: BP 175/87
[2025-08-08] MEDS: CLONIDINE HCL 0.2MG/24H PTWK 1 EA PATCH TD SCH (17:58)
[2025-08-08 20:07] VITALS: BP 137/79; TEMP 98; O2SAT 100
[2025-08-09 08:00] VITALS: BP 146/74; TEMP 97.8; O2SAT 96
[2025-08-09 16:08] VITALS: BP 151/68; TEMP 98.7; O2SAT 98
[2025-08-09 20:05] VITALS: BP 150/70; TEMP 97.7; O2SAT 97
[2025-08-10 08:00] VITALS: BP 148/71; TEMP 97.7; O2SAT 98
[2025-08-10 16:00] VITALS: BP 134/70; TEMP 97.7; O2SAT 98
[2025-08-10 21:51] VITALS: BP 140/70; TEMP 97.9; O2SAT 95
[2025-08-11 08:00] VITALS: BP 139/69; TEMP 97.8; O2SAT 100
[2025-08-11] MEDS ORDERED: LORAZEPAM 0.5 MG TABLET PO PRN (14:30)
[2025-08-11 16:00] VITALS: BP_SYST 105; BP_SYST 126; BP_DIAS 75; BP_DIAS 82; TEMP 97.8; TEMP 98; O2SAT 100; O2SAT 94
[2025-08-11] MEDS: QUETIAPINE FUMARATE 25 MG TABLET PO SCH ×2 (16:21→21:02)
[2025-08-12 08:00] VITALS: BP 141/72; TEMP 97.7; O2SAT 96
[2025-08-12 14:57] LABS: APPEARANCE,URINE CLEAR (CLEAR); BLOOD, URINE NEGATIVE Ery/uL (NEGATIVE); LEUKOCYTE ESTERASE ,URINE NEGATIVE (NEGATIVE); NITRITE, URINE NEGATIVE (NEGATIVE); UGLUCOSE NEGATIVE (NEGATIVE)
[2025-08-12 16:00] VITALS: BP 142/74; TEMP 97.7; O2SAT 98
[2025-08-12 20:00] VITALS: BP 132/65; TEMP 97.7; O2SAT 96
[2025-08-13 08:00] VITALS: BP 194/84; TEMP 97.9; O2SAT 96
[2025-08-13 08:34] VITALS: BP 165/81
[2025-08-13 16:00] VITALS: BP 151/71; TEMP 98.1; O2SAT 98
[2025-08-13 19:53] VITALS: BP 137/79; TEMP 98.2; O2SAT 97
[2025-08-13] MEDS: QUETIAPINE FUMARATE 25 MG TABLET PO SCH (21:06)
[2025-08-14 08:03] VITALS: BP 134/86; TEMP 97.6; O2SAT 98
[2025-08-14] MEDS: MAG HYDROX/AL HYDROX/SIMETH 30 ML UDC PO PRN (15:42)
[2025-08-14 15:56] VITALS: BP 146/65; TEMP 98.1; O2SAT 100
[2025-08-14 20:37] VITALS: BP 150/70; TEMP 98.1; O2SAT 96
[2025-08-15] MEDS: ACETAMINOPHEN 325 MG TABLET PO PRN (06:54)
[2025-08-15 08:00] VITALS: BP 145/87; TEMP 97.9; O2SAT 98
[2025-08-15 16:00] VITALS: BP 146/88; TEMP 98.7; O2SAT 99
[2025-08-15 19:36] LABS: APPEARANCE,URINE CLEAR (CLEAR); BLOOD, URINE NEGATIVE Ery/uL (NEGATIVE); LEUKOCYTE ESTERASE ,URINE TRACE (NEGATIVE); NITRITE, URINE NEGATIVE (NEGATIVE); UGLUCOSE NEGATIVE (NEGATIVE)
[2025-08-15 20:06] VITALS: BP 116/77; TEMP 98.6; O2SAT 99
[2025-08-15 20:07] LABS: ADD URINE CULTURE YES; SQUAMOUS EPITHELIAL CELL,UR Rare /HPF (None Seen)
[2025-08-15] MEDS: QUETIAPINE FUMARATE 25 MG TABLET PO SCH (21:23)
[2025-08-16 08:28] VITALS: BP 122/78; TEMP 97.8; O2SAT 98
[2025-08-16 08:38] VITALS: BP 122/78
[2025-08-16] MEDS ORDERED: CLON1PAT2 TD (11:24)
== END 2025-08-16 14:20 | disposition home or self-care (01) | DRG 885 ==
LOC: ER 16:27 → GPS 20:51
PROVIDERS: ADMIT Registered Nurse; ATTEND Nurse Practitioner Acute Care
DX: F29 Unspecified psychosis not due to a substance or known physiological condition (principal); E44.0 Moderate protein-calorie malnutrition; Z91.148 Patient's other noncompliance with medication regimen for other reason; E88.09 Other disorders of plasma-protein metabolism, not elsewhere classified; N39.0 Urinary tract infection, site not specified; B96.89 Other specified bacterial agents as the cause of diseases classified elsewhere; F12.10 Cannabis abuse, uncomplicated; F31.9 Bipolar disorder, unspecified; I10 Essential (primary) hypertension; R62.7 Adult failure to thrive; E87.6 Hypokalemia; Z79.899 Other long term (current) drug therapy; F20.9 Schizophrenia, unspecified; E78.5 Hyperlipidemia, unspecified; F41.9 Anxiety disorder, unspecified; Z73.6 Limitation of activities due to disability
CPT/HCPCS: 36415; 80048-TC; 80053-TC; 80061-TC; 80076-TC; 81001; 82565-TC; 82962-TC; 85025-TC; 87081-TC; 87086-TC; 97112-TC; 97116-TC; 97530-TC; 98960; J1630